=== PATIENT | male | born 1960 | race Caucasian/White ===

== ENCOUNTER 2021-03-17 09:59 | Emergency (ER) | payer OTHER ==
[2021-03-17] MEDS ORDERED: diphenhydrAMINE 50 MG/ML SDV IVPUSH ONE (10:07)
[2021-03-17] MEDS ORDERED: EPINEPHrine 1 MG/ML SDV SUBCUT ONE (10:07)
--- NOTE | 2021-03-17 10:25 | EDM.PDOC ---
ED HPI GENERAL MEDICAL PROBLEM - General Chief Complaint: Allergic Reaction Stated Complaint: STUNG BY BEE/ ALLERGIC Time Seen by Provider: 03/17/21 10:00 Source of Information: Reports: Patient History Limitations: Reports: No Limitations - History of Present Illness INITIAL COMMENTS - FREE TEXT/NARRATIVE: 61-year-old male who has had previous bee sting allergy reactions, was stung twice on the right foot about 20 minutes prior to presenting to the emergency room. He is developing a diffuse reddened rash, feels itchy, and diaphoretic. No issues with breathing, no mucosal swelling, no chest pain, nausea or vomiting. He has an EpiPen but did not use it because he was "coming to the ER". Onset: Sudden Duration: Minutes: (Stung about 20 minutes prior to presenting to the ER) Location: Reports: Other (2 stings on the right foot, systemic reaction is generalized) Associated Symptoms: Reports: Diaphoresis, Malaise, Other (Very anxious). Denies: Fever/Chills, Nausea/Vomiting, Shortness of Breath - Related Data Allergies Allergy/AdvReac Type Severity Reaction Status Date / Time bee venom protein (honey bee) Allergy Hives Verified 03/17/21 10:08 Home Meds: Home Meds EPINEPHrine [Epipen 2-Zander] 0.3 mg IM ASDIRECTED PRN 03/17/21 [History] Omeprazole Magnesium [Prilosec Otc] 20 mg PO DAILY 03/17/21 [History] Simvastatin [Zocor] 10 mg PO BEDTIME 03/17/21 [History] lisinopriL [Lisinopril] 20 mg PO DAILY 03/17/21 [History] Social & Family History - Tobacco Use Tobacco Use Status *Q: Current Every Day Tobacco User Years of Tobacco use: 45 Packs/Tins Daily: 0.5 Used Tobacco, but Quit: No - Caffeine Use Caffeine Use: Reports: Coffee - Recreational Drug Use Recreational Drug Use: No ED ROS ALLERGIC REACTION - Review of Systems Review Of Systems: See Below Constitutional: Reports: Malaise. Denies: Fever, Chills HEENT: Denies: Rhinitis, Throat Swelling Respiratory: Denies: Shortness of Breath, Cough Cardiovascular: Denies: Chest Pain GI/Abdominal: Denies: Nausea, Vomiting Skin: Reports: Diaphoresis, Rash, Erythema Neurological: Reports: Dizziness Psychiatric: Reports: Anxiety ED EXAM GENERAL NO PERIP PULSE - Physical Exam Exam: See Below Exam Limited By: No Limitations General Appearance: Alert, Anxious Eye Exam: Bilateral Eye: Normal Inspection Throat/Mouth: Normal Inspection Head: Atraumatic Neck: Supple Respiratory/Chest: Lungs Clear Cardiovascular: Regular Rate, Rhythm GI/Abdominal: Non-Tender Extremities: Other (Some erythema is present on the right foot from his recent stings, and there is diffuse blanching hive-like rash on his extremities and trunk. No edema.) Neurological: Alert, Oriented Psychiatric: Anxious Skin Exam: Erythema, Other (Diffuse blanching hive-like lesions are present on the abdomen chest back and extremities) Course - Vital Signs Last Recorded V/S: Last Vital Signs Temp 97 F 03/17/21 10:18 Pulse 72 03/17/21 11:47 Resp 22 H 03/17/21 11:17 BP 120/78 03/17/21 11:47 Pulse Ox 96 03/17/21 11:47 - Orders/Labs/Meds Meds: Medications Discontinued Medications Generic Name Dose Route Start Last Admin Trade Name Chiq PRN Reason Stop Dose Admin Diphenhydramine HCl 50 mg 03/17/21 10:07 03/17/21 10:11 Diphenhydramine 50 Mg/Ml Sdv IVPUSH 03/17/21 10:08 50 mg ONETIME ONE Administration Epinephrine HCl 0.5 mg 03/17/21 10:07 03/17/21 10:11 Epinephrine 1 Mg/Ml Sdv SUBCUT 03/17/21 10:08 0.5 mg ONETIME ONE Administration Methylprednisolone Sodium Succinate 125 mg 03/17/21 10:29 03/17/21 10:44 Methylprednisolone Sodium Succinate 125 Mg/2 Ml Sdv IVPUSH 03/17/21 10:30 125 mg ONETIME ONE Administration - Re-Assessments/Exams Free Text/Narrative Re-Assessment/Exam: 03/17/21 10:24 Patient was given 0.5 mg of subcu epinephrine, an IV started and given 50 mg of IV Benadryl. 03/17/21 10:39 After the initial medications, patient slowly improved over the next 20 minutes. He was then given 125 mg of IV Solu-Medrol. Continued on cardiac monitoring and O2 saturation monitoring. He was less diaphoretic and more calm 03/17/21 12:56 Patient was monitored for an additional hour, rested quietly and was stable. Still had some scattered hives but much improved, no respiratory issues. He was discharged to the care of his and will continue with Benadryl orally as needed and return if he develops problems. Departure - Departure Time of Disposition: 13:10 Disposition: Home, Self-Care 01 Clinical Impression: Allergic reaction to bee sting - Discharge Information Instructions: Bee, Wasp, or Hornet Sting, Adult Referrals: PCP,Unknown [Primary Care Provider] - Forms: ED Department Discharge Care Plan Goals: Use EpiPen if stung again, and continue Benadryl every 3-4 hours orally if needed for persistent rash or itching. Increase activity as tolerated. Return anytime if worsening or concerns. Sepsis Event Note (ED) - Evaluation Sepsis Screening Result: No Definite Risk - Focused Exam Vital Signs: Vital Signs Temp Pulse Resp BP Pulse Ox 03/17/21 11:47 72 120/78 96 03/17/21 11:17 22 H 119/72 96 03/17/21 10:50 15 134/85 95 03/17/21 10:23 14 109/59 L 95 03/17/21 10:18 97 F 77 16 107/55 L 92 L
[2021-03-17] MEDS ORDERED: methylPREDNISolone Sodium Succinate 125 MG/2 ML SDV IVPUSH ONE (10:29)
== END 2021-03-17 13:10 | disposition home or self-care (01) ==
LOC: JP.ED 09:59
DX: T63.441A Toxic effect of venom of bees, accidental (unintentional), initial encounter (principal); Z91.030 Bee allergy status; Z72.0 Tobacco use
CPT/HCPCS: 96372; 96374; 96375; 99283; J0171; J1200; J2930